=== PATIENT | female | born 1995 | race Caucasian/White ===

== ENCOUNTER 2018-05-18 07:18 | Emergency (ER) | payer BC ==
--- NOTE | 2018-05-18 08:11 | EDM.PDOC ---
ED HPI GENERAL MEDICAL PROBLEM - General Chief Complaint: Abdominal Pain Stated Complaint: RT SIDE PAIN Time Seen by Provider: 05/18/18 07:50 Source of Information: Reports: Patient, Other (Is attended by her current) History Limitations: Reports: No Limitations - History of Present Illness INITIAL COMMENTS - FREE TEXT/NARRATIVE: This pleasant right lower quadrant pain on arising this morning about 6:30. She is not eating. Pain is 8 out of 10. Last the superior 04/23/18. History of vomiting or nausea. Patient weight loss fever chills cough sore throat upper respiratory lower respiratory symptoms or urinary tract symptoms. She is on control pills menstrual cycles are right on time this is suspicious. No previous surgery no back pain minimal back discomfort Abdominal Pain Score (Numeric/FACES): 8 - Related Data Allergies Allergy/AdvReac Type Severity Reaction Status Date / Time No Known Allergies Allergy Verified 05/18/18 07:50 Home Meds: Home Meds FLUoxetine HCl [Prozac] 20 mg PO DAILY 05/18/18 [History] Levonorgestrel-Ethin Estradiol [Aviane-28 Tablet] 1 tab PO DAILY 05/18/18 [ History] Past Medical History - Past Health History Medical/Surgical History: Denies Medical/Surgical History Social & Family History - Tobacco Use Smoking Status *Q: Never Smoker - Caffeine Use Caffeine Use: Reports: Soda - Recreational Drug Use Recreational Drug Use: No ED ROS GENERAL - Review of Systems Review Of Systems: See Below Constitutional: Reports: No Symptoms HEENT: Reports: No Symptoms Respiratory: Reports: No Symptoms Cardiovascular: Reports: No Symptoms Endocrine: Reports: No Symptoms GI/Abdominal: Reports: Abdominal Pain : Reports: No Symptoms Musculoskeletal: Reports: No Symptoms Skin: Reports: No Symptoms Neurological: Reports: No Symptoms Psychiatric: Reports: No Symptoms Hematologic/Lymphatic: Reports: No Symptoms Immunologic: Reports: No Symptoms ED EXAM, GI/ABD - Physical Exam Exam: See Below Text/Narrative:: Doesn't asthenic also well-nourished woman in moderate distress. She has the pain on her facial expression. She is pleasant interactive and very cooperative Exam Limited By: No Limitations General Appearance: Alert, WD/WN, Moderate Distress Eyes: Bilateral: Normal Appearance Ears: Normal External Exam Nose: Normal Inspection Throat/Mouth: Normal Inspection, Normal Lips, Normal Teeth, Normal Gums, Normal Oropharynx, Normal Voice, Other (We'll try mucosa) Head: Atraumatic, Normocephalic Neck: Normal Inspection, Supple, Non-Tender, Full Range of Motion Respiratory/Chest: No Respiratory Distress, Lungs Clear, Normal Breath Sounds, No Accessory Muscle Use, Chest Non-Tender GI/Abdominal Exam: Normal Bowel Sounds, Soft, No Organomegaly, No Distention, No Mass, Guarding, Rebound, Other (Mild rebound Rosving sign is positive e) (Female) Exam: Deferred Rectal (Female) Exam: Deferred Back Exam: Other (I'll percussion tenderness CVA and lateral) Extremities: Normal Inspection, Normal Range of Motion, Non-Tender, No Pedal Edema, Normal Capillary Refill Neurological: Alert, Oriented, CN II-XII Intact, Normal Cognition, Normal Gait, Normal Reflexes, No Motor/Sensory Deficits Psychiatric: Normal Affect Skin Exam: Warm, Dry, Intact Lymphatic: No Adenopathy Course - Vital Signs Last Recorded V/S: Last Vital Signs Temp 36.3 C 05/18/18 07:32 Pulse 90 05/18/18 08:37 Resp 18 05/18/18 08:37 BP 119/76 05/18/18 08:37 Pulse Ox 98 05/18/18 08:37 - Orders/Labs/Meds Orders: Active Orders 24 hr Category Date Time Status Abdomen Pelvis w Cont [CT] Stat Exams 05/18/18 08:14 Ordered Labs: Laboratory Tests 05/18/18 05/18/18 05/18/18 Range/Units 07:44 07:44 08:30 WBC 6.3 (4.5-12.0) X10-3/uL RBC 4.40 (3.23-5.20) x10(6)uL Hgb 13.1 (11.5-15.5) g/dL Hct 39.3 (30.0-51.3) % MCV 89.4 (80-96) fL MCH 29.9 (27.7-33.6) pg MCHC 33.4 (32.2-35.4) g/dL RDW 14.5 (11.5-15.5) % Plt Count 168 (125-369) X10(3)uL MPV 10.7 H (7.4-10.4) fL Neut % (Auto) 53.8 (46-82) % Lymph % (Auto) 34.5 (13-37) % [place] % (Auto) 6.5 (4-12) % Eos % (Auto) 4 (1.0-5.0) % Baso % (Auto) 1 (0-2) % Neut # (Auto) 3.3 (1.6-8.3) # Lymph # (Auto) 2.2 (0.6-5.0) # [place] # (Auto) 0.4 (0.0-1.3) # Eos # (Auto) 0.3 (0.0-0.8) # Baso # (Auto) 0.1 (0.0-0.2) # Sodium (135-145) mmol/L Potassium (3.5-5.3) mmol/L Chloride (100-110) mmol/L Carbon Dioxide (21-32) mmol/L BUN (7-18) mg/dL Creatinine (0.55-1.02) mg/dL Est Cr Clr Drug Dosing mL/min Estimated GFR (MDRD) (>60) BUN/Creatinine Ratio (9-20) Glucose (80-116) mg/dL Lactic Acid (0.4-2.2) mmol/L Calcium (8.6-10.2) mg/dL Total Bilirubin (0.1-1.3) mg/dL AST (5-25) IU/L ALT (12-36) U/L Alkaline Phosphatase (56-112) IU/L Total Protein (6.0-8.0) g/dL Albumin (3.5-5.2) g/dL Globulin g/dL Albumin/Globulin Ratio Urine Color Yellow (YELLOW) Urine Appearance Clear (CLEAR) Urine pH 6.5 (5.0-6.5) Ur Specific [place] 1.015 (1.010-1.025) Urine Protein Negative (NEGATIVE) mg/dL Urine Glucose (UA) Normal (NEGATIVE) mg/dL Urine Ketones Negative (NEGATIVE) mg/dL Urine Occult Blood Negative (NEGATIVE) Urine Nitrite Negative (NEGATIVE) Urine Bilirubin Negative (NEGATIVE) Urine Urobilinogen Normal (NEGATIVE) mg/dL Ur Leukocyte Esterase Negative (NEGATIVE) Urine WBC 0-5 (0) Ur Squamous Epith Cells Few H (NS,R,O) Urine Bacteria Moderate H (NS) Urine HCG, Qual Negative (NEGATIVE) 05/18/18 05/18/18 Range/Units 08:30 08:30 WBC (4.5-12.0) X10-3/uL RBC (3.23-5.20) x10(6)uL Hgb (11.5-15.5) g/dL Hct (30.0-51.3) % MCV (80-96) fL MCH (27.7-33.6) pg MCHC (32.2-35.4) g/dL RDW (11.5-15.5) % Plt Count (125-369) X10(3)uL MPV (7.4-10.4) fL Neut % (Auto) (46-82) % Lymph % (Auto) (13-37) % [place] % (Auto) (4-12) % Eos % (Auto) (1.0-5.0) % Baso % (Auto) (0-2) % Neut # (Auto) (1.6-8.3) # Lymph # (Auto) (0.6-5.0) # [place] # (Auto) (0.0-1.3) # Eos # (Auto) (0.0-0.8) # Baso # (Auto) (0.0-0.2) # Sodium 139 (135-145) mmol/L Potassium 3.6 (3.5-5.3) mmol/L Chloride 105 (100-110) mmol/L Carbon Dioxide 23 (21-32) mmol/L BUN 10 (7-18) mg/dL Creatinine 0.8 (0.55-1.02) mg/dL Est Cr Clr Drug Dosing 79.23 mL/min Estimated GFR (MDRD) > 60 (>60) BUN/Creatinine Ratio 12.5 (9-20) Glucose 88 (80-116) mg/dL Lactic Acid 1.4 (0.4-2.2) mmol/L Calcium 9.0 (8.6-10.2) mg/dL Total Bilirubin 0.3 (0.1-1.3) mg/dL AST 12 (5-25) IU/L ALT 18 (12-36) U/L Alkaline Phosphatase 45 L (56-112) IU/L Total Protein 7.1 (6.0-8.0) g/dL Albumin 3.2 L (3.5-5.2) g/dL Globulin 3.9 g/dL Albumin/Globulin Ratio 0.8 Urine Color (YELLOW) Urine Appearance (CLEAR) Urine pH (5.0-6.5) Ur Specific [place] (1.010-1.025) Urine Protein (NEGATIVE) mg/dL Urine Glucose (UA) (NEGATIVE) mg/dL Urine Ketones (NEGATIVE) mg/dL Urine Occult Blood (NEGATIVE) Urine Nitrite (NEGATIVE) Urine Bilirubin (NEGATIVE) Urine Urobilinogen (NEGATIVE) mg/dL Ur Leukocyte Esterase (NEGATIVE) Urine WBC (0) Ur Squamous Epith Cells (NS,R,O) Urine Bacteria (NS) Urine HCG, Qual (NEGATIVE) Meds: Medications Discontinued Medications Generic Name Dose Route Start Last Admin Trade Name Dominickq PRN Reason Stop Dose Admin Fentanyl 50 mcg 05/18/18 08:15 Sublimaze IVPUSH Q30M ADDISON Fentanyl 50 mcg 05/18/18 08:25 05/18/18 08:34 Sublimaze IVPUSH 05/18/18 08:26 50 mcg ONETIME ONE Administration Lactated Ringer's 1,000 mls @ 999 mls/hr 05/18/18 08:12 05/18/18 08:20 Ringers, Lactated IV 05/18/18 09:12 999 mls/hr BOLUS ONE Administration Iopamidol 75 ml 05/18/18 08:41 05/18/18 08:56 Isovue-370 (76%) IV 05/18/18 08:42 57 ml ASDIRECTED ONE Administration Ondansetron HCl 4 mg 05/18/18 08:14 05/18/18 08:31 Zofran IVPUSH 05/18/18 08:15 4 mg ONETIME ONE Administration - Radiology Interpretation CT Results Date: 05/18/18 (CT normal abdomen no appendicitis she has moderate stool suggesting constipation) Departure - Departure Time of Disposition: 10:00 (CAT scan abdomen normal appendix no stones moderate stool in the colon With abnormal UA) Disposition: Home, Self-Care 01 Condition: Good Clinical Impression: Abdominal pain Qualifiers: Abdominal location: generalized Qualified Code(s): R10.84 - Generalized abdominal pain Constipation Qualifiers: Constipation type: unspecified constipation type Qualified Code(s): K59.00 - Constipation, unspecified Urinary tract infection Qualifiers: Urinary tract infection type: acute cystitis Hematuria presence: without hematuria Qualified Code(s): N30.00 - Acute cystitis without hematuria - Discharge Information *PRESCRIPTION DRUG MONITORING PROGRAM REVIEWED*: Not Applicable *COPY OF PRESCRIPTION DRUG MONITORING REPORT IN PATIENT TRAY: Not Applicable Instructions: High-Fiber Diet, Urinary Tract Infection, Adult, [id number] Referrals: Grecia Rider SOFTWARE DEVELOPMENT TEST ENGINEER [Primary Care Provider] - Forms: ED Department Discharge - My Orders Last 24 Hours: My Active Orders 05/18/18 08:14 Abdomen Pelvis w Cont [CT] Stat - Assessment/Plan Last 24 Hours: My Active Orders 05/18/18 08:14 Abdomen Pelvis w Cont [CT] Stat
[2018-05-18] MEDS ORDERED: Lactated Ringers 1,000 ML IV ONE (08:12)
[2018-05-18] MEDS ORDERED: Ondansetron 4 MG/2 ML SDV IVPUSH ONE (08:14)
[2018-05-18] MEDS ORDERED: fentaNYL 100 MCG/2 ML SDV IVPUSH SCH (08:15)
[2018-05-18] MEDS ORDERED: fentaNYL 100 MCG/2 ML SDV IVPUSH ONE (08:25)
[2018-05-18] MEDS ORDERED: Iopamidol 755 Mg/ML 75 ML Bottle IV ONE (08:41)
[2018-05-18 12:00] VITALS: BP 110/71
== END 2018-05-18 10:25 | disposition home or self-care (01) ==
LOC: FB.ED 07:18
DX: K59.00 Constipation, unspecified (principal); N30.00 Acute cystitis without hematuria; Z79.899 Other long term (current) drug therapy
CPT/HCPCS: 36415; 74177; 80053; 81001; 81025; 83605; 85025; 96361; 96374; 96375; 99284; J2405; J3010; J7120; Q9967